=== PATIENT | female | born 1960 | race Caucasian/White ===

== ENCOUNTER 2019-03-11 22:05 | Observation (INO) ==
[2019-03-11] MEDS ORDERED: Ketorolac 30 MG/ML VIAL IVP ONE (22:50)
[2019-03-11] MEDS ORDERED: Prochlorperazine 10 MG/2 ML VIAL IVP STA (22:50)
[2019-03-11] MEDS ORDERED: Isovue-370 500 ML BOTTLE IVP ONE (22:54)
[2019-03-11] MEDS ORDERED: methylPREDNISolone 125 MG/2 ML VIAL IVP ONE (22:55)
[2019-03-11 23:07] LABS: Basophils # 0.1 K/mcL (0.0-0.2); Basophils % 0.5 %; Eosinophils # 0.2 K/mcL (0.0-0.6); Eosinophils % 1.8 %; Hemoglobin 14.2 g/dL (11.5-15.4); Immature Granulocytes % 0.6 % (0-4); Lymphocytes # 2.9 K/mcL (0.6-4.6); Lymphocytes % 30.9 %; Mean Corpuscular Hemoglobin 29.6 pg (28.0-33.3); Mean Corpuscular Volume 89.8 fL (83.0-100.0); Mean Platelet Volume 9.5 fL (9.4-12.4); Monocytes # 0.8 K/mcL (0.0-1.3); Neutrophils # 5.4 K/mcL (1.6-8.9); Platelet Count 333 K/mcL (140-400); Red Blood Count 4.79 M/mcL (3.82-4.97); Red Cell Distribution Width 12.7 % (11.5-14.5); Segmented Neutrophils % 58.2 %; White Blood Count 9.3 K/mcL (4.3-11.1)
[2019-03-11 23:28] LABS: BUN/Creatinine Ratio 26 (6-26); Blood Urea Nitrogen 18 mg/dL (6-20); C-Reactive Protein < 5 mg/L (Less than 10); Calcium 9.3 mg/dL (8.6-10.3); Carbon Dioxide 25 mEq/L (23-29); Chloride 102 mEq/L (98-107); Glucose 110 mg/dL (70-105); Osmolality,Calculated 285 (280-300); Sodium 136 mEq/L (136-145); eGFR For African Americans > 60 (> 60); eGFR For Non-African Americans > 60 (> 60)
--- NOTE | 2019-03-11 23:38 | Emergency Department Note ---
Disposition Clinical Impression: Photophobia Cephalgia Qualifiers: Headache type: unspecified Headache chronicity pattern: acute headache Intractability: not intractable Qualified Code(s): R51 - Headache Disposition: Admitted As Inpatient Condition: Fair Referrals: Lloyd Sheffield DO [Primary Care Provider] - Forms: ED Satisfaction Letter Time of Disposition: 01:06 Headache HPI - General Chief Complaint: ED Headache Stated Complaint: Migraine x5hrs, Dizzy, Nausea, Blurry Vision Time Seen by Provider: 03/11/19 22:24 Source: patient, family Mode of arrival: private vehicle Limitations: no limitations Nursing Notes Reviewed: Yes Vital Signs Reviewed: Yes - History of Present Illness HPI Narrative: 58-year-old female with a past medical history of hypertension for which she takes lisinopril that reports a sudden onset headache over her left holiness approximately 5 hours prior to arrival. Patient describes her pain as throbbing, 10 out of 10 in severity, associated with blurry vision, lighthead edness, nausea. Patient also describes some dry heaves but no actual vomiting. Patient states she has had this approximate 5 years ago but cannot remember what they did at the time or if there is any cause. Patient is in a darkened room, with a wash cloth over her face, and states that light and sound make the pain worse. Patient is also describing some numbness on the left side of her face. She cannot tell me if tapping on her left holiness makes her pain worse. Pain Scale: 8 - Related Data Home Medications Medication Instructions Recorded Confirmed Fluoxetine 11/24/17 Lisinopril 11/24/17 Tylenol 11/24/17 Previous Rx's Medication Instructions Recorded methylPREDNISolone [Medrol] 4 mg PO TAPER #21 tablet 11/24/17 Allergies Allergy/AdvReac Type Severity Reaction Status Date / Time No Known Allergies Allergy Verified 11/24/17 14:11 Review of Systems: In addition to that documented in the HPI above, the additional ROS was obtained: Constitutional: Denies fevers or chills Eyes: Reports blurry vision starting with headache ENMT: Denies sore throat CV: Denies chest pain Resp: Denies SOB GI: Denies vomiting or diarrhea Reports nausea and dry heaves : Denies painful urination MSK: Denies recent trauma Skin: Denies new rashes Neuro: Denies new numbness or tingling or weakness Reports sudden onset headache and lightheadedness Endocrine: Denies unexpected weight loss Heme: Denies bleeding disorders Headache PMH - Past Medical History Medical history: Reports: hypertension, migraine Psychiatric history: Reports: no psych history - Social History Smoking Status: Never smoker Alcohol use: Reports: none Drug use: Reports: none Physical Exam Pt could not participate in neurologic examination in the beginning due to pain, but CN II-XII grossly intact with the exception of CNV, V1-V2 on left pt states she cannot feel me touching her face in these distributions. No facial droop. Mentating well. Speech not slurred. - General Limitations: no limitations General appearance: alert - Head Head exam: atraumatic, normocephalic - Neck Neck exam: Present: normal inspection, full ROM, trachea midline - Chest Chest inspection: Present: normal inspection, symmetric chest wall rise - Abdominal Exam Abdominal exam: Present: soft, Non-Tender - Extremities Exam Extremities exam: Present: normal inspection, full ROM - Back Exam Back exam: Present: normal inspection, full ROM - Neurological Exam Neurological exam: Present: alert, oriented X3 - Psychiatric Psychiatric exam: Present: normal affect, normal mood - Skin Skin exam: Present: warm, dry, intact Course - Consultations Consultation #1: Spoke with Dr. Hill, neurology, who states that if the patient was not feeling better, to get an MRI. 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 Concern for SAH, giant cell arteritis. Will obtain Head CT, Head CTA . Will admin migraine cocktail, will give IV steroids, and will obtain CBC, BMP, ESR, CRP. Disposition pending. 2419: Pt reports her headache improved to 6/10 in severity and no longer had a wash cloth on her face. Will order morphine and apply NC O2. 2446: Spoke with Dr. Menjivar from neurology who states that if there is continued concern, he would order an MRI. Will admit pt to hospitalist for imaging in the AM. - Medical Records Medical records reviewed: Yes I reviewed the patient's medical records. - Lab Data Lab results reviewed: Yes I reviewed the patient's lab results. Result diagrams: 03/11/19 22:57 03/11/19 22:57 Lab Results 03/11/19 03/11/19 03/11/19 Range/Units 22:57 22:57 22:57 WBC 9.3 (4.3-11.1) K/mcL RBC 4.79 (3.82-4.97) M/mcL Hgb 14.2 (11.5-15.4) g/dL Hct 43.0 (35.3-44.9) % MCV 89.8 (83.0-100.0) fL MCH 29.6 (28.0-33.3) pg MCHC 33.0 (31.6-35.5) g/dL RDW 12.7 (11.5-14.5) % Plt Count 333 (140-400) K/mcL MPV 9.5 (9.4-12.4) fL Immature Gran % 0.6 (0-4) % Seg Neutrophils % 58.2 % Lymphocytes % 30.9 % Monocytes % 8.0 % Eosinophils % 1.8 % Basophils % 0.5 % Neutrophils # 5.4 (1.6-8.9) K/mcL Lymphocytes # 2.9 (0.6-4.6) K/mcL Monocytes # 0.8 (0.0-1.3) K/mcL Eosinophils # 0.2 (0.0-0.6) K/mcL Basophils # 0.1 (0.0-0.2) K/mcL ESR 16 H (0-15) mm/hr Sodium 136 (136-145) mEq/L Potassium 4.0 (3.5-5.1) mEq/L Chloride 102 (98-107) mEq/L Carbon Dioxide 25 (23-29) mEq/L BUN 18 (6-20) mg/dL Creatinine 0.68 (0.60-1.20) mg/dL Est GFR ( Amer) > 60 (> 60) Est GFR (Non-Af Amer) > 60 (> 60) BUN/Creatinine Ratio 26 (6-26) Glucose 110 H (70-105) mg/dL Calculated Osmolality 285 (280-300) Calcium 9.3 (8.6-10.3) mg/dL Total Bilirubin 0.6 (0.3-1.0) mg/dL Direct Bilirubin 0.1 (0.0-0.2) mg/dL Indirect Bilirubin 0.5 (0.0-1.2) mg/dL AST 17 (13-39) Units/L ALT 27 (7-52) Units/L Alkaline Phosphatase 82 (34-104) Units/L C-Reactive Protein < 5 (Less than 10) mg/L Serum Total Protein 7.2 (6.4-8.9) g/dL Albumin 4.4 (3.5-5.7) g/dL Globulin 2.8 (2.4-3.5) g/dL Albumin/Globulin Ratio 1.6 (1.1-2.2) Salicylates < 2.5 L (15.0-30.0) mg/dL Acetaminophen < 10 L (10-20) mcg/mL - Radiology Data Radiology results reviewed: Yes I reviewed the patient's radiology results. Head CT 03/11/19 22:48 IMPRESSION: Negative CT brain with no acute intracranial abnormality. D/ / Lorna Reyes MD / Lorna Reyes MD Interpreting Provider: Lorna Reyes MD Head CTA 03/11/19 22:54 IMPRESSION: Unremarkable CTA of the head. D/ / Joaquim Roman MD / Joaquim Roman MD Interpreting Provider: Joaquim Roman MD
[2019-03-11 23:39] LABS: Acetaminophen < 10 mcg/mL (10-20); Alanine Aminotransferase 27 Units/L (7-52); Albumin 4.4 g/dL (3.5-5.7); Albumin/Globulin Ratio 1.6 (1.1-2.2); Alkaline Phosphatase 82 Units/L (34-104); Aspartate Amino Transferase 17 Units/L (13-39); Bilirubin,Direct 0.1 mg/dL (0.0-0.2); Bilirubin,Indirect 0.5 mg/dL (0.0-1.2); Bilirubin,Total 0.6 mg/dL (0.3-1.0); Globulin 2.8 g/dL (2.4-3.5); Salicylate < 2.5 mg/dL (15.0-30.0); Total Protein 7.2 g/dL (6.4-8.9)
[2019-03-12] MEDS ORDERED: Morphine Sulfate 2 MG/ML SYRINGE IVP ONE (00:17)
--- NOTE | 2019-03-12 00:34 | Emergency Department Note ---
Disposition Clinical Impression: Cephalgia, Photophobia Disposition: Admitted As Inpatient Condition: Good Referrals: Lloyd Sheffield DO [Primary Care Provider] - Forms: ED Satisfaction Letter Time of Disposition: 00:41 General Adult HPI - General Chief complaint: ED Headache Stated complaint: Migraine x5hrs, Dizzy, Nausea, Blurry Vision Time Seen by Provider: 03/11/19 22:24 Source: patient, family Mode of arrival: private vehicle Limitations: no limitations - History of Present Illness Pain Scale: 8 - Related Data Home Medications Medication Instructions Recorded Confirmed Fluoxetine 11/24/17 Lisinopril 11/24/17 Tylenol 11/24/17 Previous Rx's Medication Instructions Recorded methylPREDNISolone [Medrol] 4 mg PO TAPER #21 tablet 11/24/17 Allergies Allergy/AdvReac Type Severity Reaction Status Date / Time No Known Allergies Allergy Verified 11/24/17 14:11 Past Medical History - Past Medical History Medical history: Reports: hypertension, migraine Psychiatric history: Reports: no psych history - Social History Smoking Status: Never smoker Smokeless Tobacco Status: No Alcohol use: Reports: none Drug use: Reports: none Physical Exam - General Limitations: no limitations General appearance: alert Course Vital Signs Temperature 97.5 F L 03/11/19 22:22 Pulse Rate 77 03/11/19 22:22 Respiratory Rate 20 03/11/19 22:22 Blood Pressure 152/95 03/11/19 22:22 O2 Sat by Pulse Oximetry 100 03/11/19 22:22 Temperature 97.5 F L 03/11/19 22:22 Pulse Rate 77 03/11/19 22:22 Respiratory Rate 20 03/11/19 22:22 Blood Pressure 152/95 03/11/19 22:22 O2 Sat by Pulse Oximetry 100 03/11/19 22:22 Oxygen Delivery Oxygen Delivery Room Air Medical Decision Making - MDM Narrative Medical decision making narrative: 58-year-old female presents emergency room for left-sided headache. Started around 4:30 today. Said no onset. Pain involving the left temporal region and left forehead region. Associated with blurry vision and photophobia. She denies double vision but describes it more of a blurry vision. She denies blindness in her left eye. She also describes some slight numbness in the left forehead region and in the left cheek. She denies any circumoral numbness. No speech rounds. No tongue problems. She denied any numbness or weakness in her arms or legs. No history of CVA. She denies trauma. No neck pain or neck stiffness. On exam, patient sitting in a dark room with a towel over her head. She is complaining of some tingling numbness sensation in the V1 and V2 distribution of the trigeminal nerve. She does have pain in the left temporal region on but she has no on the temporal artery itself, however we elected to give her some solumedrol to start. CT and CTA negative. I don't feel she has an acute SAH. will consult with neurology now. c - Medical Records Medical records reviewed: Yes I reviewed the patient's medical records. - Lab Data Lab results reviewed: Yes I reviewed the patient's lab results. Result diagrams: 03/11/19 22:57 03/11/19 22:57 Lab Results 03/11/19 03/11/19 03/11/19 Range/Units 22:57 22:57 22:57 WBC 9.3 (4.3-11.1) K/mcL RBC 4.79 (3.82-4.97) M/mcL Hgb 14.2 (11.5-15.4) g/dL Hct 43.0 (35.3-44.9) % MCV 89.8 (83.0-100.0) fL MCH 29.6 (28.0-33.3) pg MCHC 33.0 (31.6-35.5) g/dL RDW 12.7 (11.5-14.5) % Plt Count 333 (140-400) K/mcL MPV 9.5 (9.4-12.4) fL Immature Gran % 0.6 (0-4) % Seg Neutrophils % 58.2 % Lymphocytes % 30.9 % Monocytes % 8.0 % Eosinophils % 1.8 % Basophils % 0.5 % Neutrophils # 5.4 (1.6-8.9) K/mcL Lymphocytes # 2.9 (0.6-4.6) K/mcL Monocytes # 0.8 (0.0-1.3) K/mcL Eosinophils # 0.2 (0.0-0.6) K/mcL Basophils # 0.1 (0.0-0.2) K/mcL ESR 16 H (0-15) mm/hr Sodium 136 (136-145) mEq/L Potassium 4.0 (3.5-5.1) mEq/L Chloride 102 (98-107) mEq/L Carbon Dioxide 25 (23-29) mEq/L BUN 18 (6-20) mg/dL Creatinine 0.68 (0.60-1.20) mg/dL Est GFR ( Amer) > 60 (> 60) Est GFR (Non-Af Amer) > 60 (> 60) BUN/Creatinine Ratio 26 (6-26) Glucose 110 H (70-105) mg/dL Calculated Osmolality 285 (280-300) Calcium 9.3 (8.6-10.3) mg/dL Total Bilirubin 0.6 (0.3-1.0) mg/dL Direct Bilirubin 0.1 (0.0-0.2) mg/dL Indirect Bilirubin 0.5 (0.0-1.2) mg/dL AST 17 (13-39) Units/L ALT 27 (7-52) Units/L Alkaline Phosphatase 82 (34-104) Units/L C-Reactive Protein < 5 (Less than 10) mg/L Serum Total Protein 7.2 (6.4-8.9) g/dL Albumin 4.4 (3.5-5.7) g/dL Globulin 2.8 (2.4-3.5) g/dL Albumin/Globulin Ratio 1.6 (1.1-2.2) Salicylates < 2.5 L (15.0-30.0) mg/dL Acetaminophen < 10 L (10-20) mcg/mL - Radiology Data Radiology results reviewed: Yes I reviewed the patient's radiology results.
[2019-03-12] MEDS ORDERED: 0.9 % Sodium Chloride 1,000 ML ONE (00:53)
[2019-03-12] MEDS ORDERED: 0.9 % Sodium Chloride 1,000 ML IVC SCH (01:00)
[2019-03-12] MEDS ORDERED: Ondansetron 4 MG/2 ML VIAL IVP PRN (04:49)
[2019-03-12] MEDS ORDERED: Naloxone 0.4 MG/ML INJ IVP PRN (04:49)
[2019-03-12] MEDS ORDERED: Ketorolac 15 MG/ML VIAL IVP PRN (04:53)
[2019-03-12] MEDS ORDERED: traMADol 50 MG TABLET PO PRN (04:53)
--- NOTE | 2019-03-12 04:59 | Internal Med History&Physical ---
Date of Encounter: 03/12/19 Time of Encounter: 04:53 Internal Medicine - H&P: HPI Chief complaint: Headache History of present illness: Ms. Bowling is a 58 year old female with a past medical history of hypertension who presented to the ED due to acute onset headache. Patient states that she was in her usual state of health. Around 4:30 yesterday afternoon she began n oting blurry vision a slight blurriness in her vision which was shortly followed by a headache. Headache was described as left sided predominantly, nonradiating and throbbing in quality. Patient went home and attempted to sleep it off, however, headache persisted and became progressively worse into the evening. She began having associated nausea and dry heaves. She took Tylenol which did not help. Symptoms appear to be aggravated by bright lights. Patient denies any migraine history but states she has had similar headaches in the remote past approximately 5 years ago with similar presentation. Patient did endorse some soreness along the left jainism and tingling along the left side of the face. No reported weakness or focal deficits. No reports of jaw pain with chewing. Denies any stiffness in the shoulders or hips. Patient denies any recent changes in sleep or diet. She does report some stress at work. Patient is a nonsmoker. Does not drink. Family history of brain aneurysm and patient's mother. Patient currently feeling better. She still has some slight photophobia. On initial arrival patient was afebrile and hemodynamically stable. Laboratory workup was relatively unremarkable with a slightly elevated ESR 16. Past Med Surg Social Fam HX - Past Medical History Medical history: hypertension, migraine Psychiatric history: no psych history - Social History Smoking Status: Never smoker Smokeless Tobacco Status: No Alcohol use: none Drug use: none Internal Medicine - H&P: Meds Fluoxetine 20 mg PO DAILY 11/24/17 [History] Lisinopril 20 mg PO DAILY 11/24/17 [History] Tramadol HCl [Ultram] 50 mg PO BID PRN 03/12/19 [History] Allergy/AdvReac Type Severity Reaction Status Date / Time No Known Allergies Allergy Verified 11/24/17 14:11 All Systems PM: A 10-system review of systems was performed and is negative for pertinent findings except as documented above in the HPI. - Constitutional Constitutional: no chills, no fever(s), no night sweats - EENT Eyes: no change in vision, no discharge, no pain, no photophobia Ears: no ear discharge, no ear pain, no tinnitus Nose, mouth and throat: no dysphagia, no nasal discharge, no neck pain, no sore throat - Cardiovascular Cardiovascular ROS IM: no chest pain, no diaphoresis, no dyspnea, no lightheadedness, no palpitations, no syncope - Respiratory Respiratory: no cough, no dyspnea, no wheezing, no excessive phlegm production - Gastrointestinal Gastrointestinal: no abdominal pain, no diarrhea, no hematemesis, no hematochezia, no melena, no nausea, no vomiting - Genitourinary Genitourinary: no change in urinary stream, no dysuria, no flank pain, no hematuria - Musculoskeletal Musculoskeletal ROS IM: no numbness, no tingling - Integumentary Integumentary IM: no rash, no unusual bruising - Neurological Neurological ROS: no confusion, no convulsions, no focal weakness, no numbness, no tingling, no tremor(s) - Hematologic/Lymphatic Hematologic/Lymphatic: no easy bruising - Constitutional Vitals: Temp Pulse Resp BP Pulse Ox 98.1 F 71 15 125/78 98 03/12/19 03:05 03/12/19 03:05 03/12/19 03:05 03/12/19 03:05 03/12/19 03:05 Exam: General: Alert and oriented 3 lying in bed in no acute distress Skin:Normal color, no rash, no lesions. HEENT:EOM, pupils equal, round and reactive. Cardiovascular:Normal S1 & S2, no rubs, murmurs or gallops. No JVD. Pulse regula r. Lungs:Normal breath sounds, no wheezes or crackles. Abdomen:Soft, non-tender, no rigidity. Extremities:No deformity, no edema or tenderness, no joint swelling or clubbing. Neurological:Normal cognition and motor skills. cranial nerves II through XII intact. Sensation intact. Muscle strength 5 out of 5 in the upper lower extremities. Pulses:Carotid and radial pulses normal +2. Rest of the physical exam is non contributory Internal Med - H&P Results - Labs CBC & Chem 7: 03/11/19 22:57 03/11/19 22:57 Labs: Short CBC 03/11/19 Range/Units 22:57 WBC 9.3 (4.3-11.1) K/mcL Hgb 14.2 (11.5-15.4) g/dL Hct 43.0 (35.3-44.9) % Plt Count 333 (140-400) K/mcL Neutrophils # 5.4 (1.6-8.9) K/mcL BMP 03/11/19 22:57 Sodium 136 Potassium 4.0 Chloride 102 Carbon Dioxide 25 BUN 18 Creatinine 0.68 Glucose 110 H Calcium 9.3 Liver Function 03/11/19 Range/Units 22:57 Total Bilirubin 0.6 (0.3-1.0) mg/dL Direct Bilirubin 0.1 (0.0-0.2) mg/dL AST 17 (13-39) Units/L ALT 27 (7-52) Units/L Alkaline Phosphatase 82 (34-104) Units/L Albumin 4.4 (3.5-5.7) g/dL - Impressions ITS Impressions Head CT 03/11/19 22:48 IMPRESSION: Negative CT brain with no acute intracranial abnormality. D/ / Lorna Reyes MD / Lorna Reyes MD Interpreting Provider: Lorna Reyes MD Head CTA 03/11/19 22:54 IMPRESSION: Unremarkable CTA of the head. D/ / Joaquim Roman MD / Joaquim Roman MD Interpreting Provider: Joaquim Roman MD - Assessment and Plan (1) Headache Current Visit: Yes Status: Acute Assessment and plan: Patient presenting with acute onset left-sided severe throbbing headache associated with nausea, photophobia and proceed by changes in vision consistent with migraine with aura. Patient reports previous history of migraines was similar presentation approximately 5 years ago. Patient reporting left jainism soreness to palpation but no reports of jaw claudication or arthritic symptoms suggestive of polymyalgia rheumatica to support giant cell arteritis. Furthermore ESR near normal. Low suspicion for CVA/TIA, aneurysm or intracranial lesion given absence of focal findings and normal CTA. Headache since has much improved. Case was discussed with neurology who felt -Continue to monitor for now with neuro checks every 4 hours -Pain control as needed -At this time, do not feel MRI is needed, however Dr. Menjivar from neurology suggested that if there is continued concern, he would order an MRI. Qualifiers: Headache chronicity pattern: acute headache Intractability: not intractable Qualified Code(s): R51 - Headache (2) Hypertension Current Visit: Yes Status: Acute Assessment and plan: Blood pressure stable. -Resume home antihypertensives Qualifiers: Hypertension type: essential hypertension Qualified Code(s): I10 - Essential (primary) hypertension (3) Depression Current Visit: Yes Status: Acute Assessment and plan: Resume fluoxetine Qualifiers: Depression Type: unspecified Qualified Code(s): F32.9 - Major depressive disorder, single episode, unspecified - Time Spent With Patient Total time spent is greater than 50% in coordination of care (as documented) at patient's floor/unit and/or counseling patient:
[2019-03-12] MEDS ORDERED: Lisinopril 20 MG TABLET PO SCH (09:00)
[2019-03-12] MEDS ORDERED: FLUoxetine 20 MG CAPSULE PO SCH (09:00)
--- NOTE | 2019-03-12 10:01 | Neurology - Consult Note ---
Date of Encounter: 03/12/19 Time of Encounter: 09:53 Assessment and Plan (1) Migraine with aura Current Visit: Yes Status: Acute Qualifiers: Status migrainosus presence: without status migrainosus Intractability: not intractable Qualified Code(s): G43.109 - Migraine with aura, not intractable, without status migrainosus History of Present Illness Chief complaint: Headache, vision loss HPI: Ms. Bowling is a 58 year old female with past medical history of hypertension and migraines who presents to emergency department with complaint of left temporal headache. Patient states that she was at work and at approximately 1600 began to experience sudden onset left-sided headache. Patient states that she does have a remote history of migraines in the past which this was similar, however she has not had one in many years. She states that she went home and tried to lay down and take Tylenol however this did not relieve her pain. She also noticed that she has had some intermittent blurred vision in her left eye during this time. Additionally, she states that she had some numbness to the left side of her face in the V1 and V2 distributions. She states that with her previous migraines, she has had neurologic symptoms in the past as well as nausea without vomiting. She did have dry heaves on this admission. She denies any recent travel, insect or arthropod bites, sick contacts. She is having no symptoms of chest pains, difficulty breathing, vomiting, changes in bowel movements or urina ry symptoms. She denies any focal weakness or numbness other than her face as mentioned above. She states her symptoms lasted until approximately 0200 this morning after admission. Upon presentation to the emergency room, vital signs were significant for a respiratory rate of 20 and a blood pressure 152/95. Laboratory results were grossly unremarkable except for a very mildly elevated ESR of 16. CT as well as CT of the head were both performed and showed no evidence of acute process. She was given Benadryl, Toradol, Solu-Medrol, morphine, Compazine in the emergency department. At time of my interview, patient states her symptoms have essentially resolved and she has "aching" in her left temporal region but is much improved from previous. She states her vision changes have now resolved and she is no longer feeling nauseous. Past medical history: As above Past surgical history: Remote history of meniscus repair Social history: Denies tobacco, alcohol, illicit drug use Family history: Alcoholism in father Past Med Surg Social Fam HX - Past Medical History Medical history: hypertension, migraine Psychiatric history: no psych history - Social History Smoking Status: Never smoker Smokeless Tobacco Status: No Alcohol use: none Drug use: none Medications and Allergies Fluoxetine 20 mg PO DAILY 11/24/17 [History] Lisinopril 20 mg PO DAILY 11/24/17 [History] Tramadol HCl [Ultram] 50 mg PO BID PRN 03/12/19 [History] Allergy/AdvReac Type Severity Reaction Status Date / Time No Known Allergies Allergy Verified 11/24/17 14:11 All Systems: The remainder of the systems were reviewed and are negative Review of Systems: - Constitutional: Denies fevers, chills, weight loss, generalized fatigue - Head/Neck: Denies CHRISTOPHER, neck stiffness - EENT: Admits to vision changes. Denies tinnitus, auditory changes, rhinorrhea, congestion, sore throat, odynaphagia - CVS: Denies chest pain, palpitations, PIKE, orthopnea, edema, - Pulm: Denies SOB, cough, sputum, wheezing - GI: Admits to nausea Denies abdominal pain, anorexia, vomiting, diarrhea, constipation, melena - : Denies dysuria, increased frequency, urgency, hematuria, - MSK: Denies joint pain, limited ROM, focal weakness - Skin: Denies rashes, ulcers, color changes, - Neuro: Admits to headache, numbness of the face, Denies paresthesias, focal deficits, ataxia, Physical Examination - Vital Signs Vital Signs: Initial Vital Signs Temp Pulse Resp BP Pulse Ox 97.5 F L 77 20 152/95 100 03/11/19 22:22 03/11/19 22:22 03/11/19 22:22 03/11/19 22:22 03/11/19 22:22 - Constitutional General appearance: comfortable, younger than stated age - Neurologic Detailed motor examination: grossly full strength in all extremities, full strength in all major muscle groups Motor examination - right side: 5/5: deltoids, biceps, triceps, credentialing manager, hip flexors, tibialis Anterior, quadriceps Motor examination - left side: 5/5: deltoids, biceps, triceps, hip flexors, credentialing manager, quadriceps, tibialis Anterior Detailed sensory examination: intact (Reports decreased sensation on V1 distribution of left side of face. Otherwise intact) Reflexes: Biceps: 2+, Patella: 2+ Mental Status Examination: awake, alert, oriented to person, oriented to place, oriented to time, follows commands appropriately, answers questions appropriately, no agnosia, no aphasia, no aproxia Cranial nerve examination: PERRL, EOMI, visual broderick intact, mastication intact, no facial asymmetry is present, no dysarthria, hearing is intact symmetrically, tongue protrudes midline, no atrophy or facial fasiculations present Cerebellar examination: performs finger to nose and heel to lee symmetrically without ataxia Results - Laboratory Findings CBC and BMP: 03/11/19 22:57 03/11/19 22:57 Abnormal lab findings: Abnormal lab results ESR 16 mm/hr (0-15) H 03/11/19 22:57 Glucose 110 mg/dL (70-105) H 03/11/19 22:57 Salicylates < 2.5 mg/dL (15.0-30.0) L 03/11/19 22:57 Acetaminophen < 10 mcg/mL (10-20) L 03/11/19 22:57 Consult Discharge Plan - Plan Referrals: Lloyd Sheffield DO [Primary Care Provider] -
--- NOTE | 2019-03-12 11:45 | Discharge Summary ---
Date of Encounter: 03/12/19 Time of Encounter: 09:00 - Discharge Diagnosis (1) Headache Priority: Primary Status: Acute Assessment and Plan: 58 year old female with a past medical history of hypertension who presented to the ED due to acute onset headache. Patient states that she was in her usual state of health. Around 4:30 yesterday afternoon she began noting blurry vision a slight blurriness in her vision which was shortly followed by a headache. Headache was described as left sided predominantly, nonradiating and throbbing in quality. Patient went home and attempted to sleep it off, however, headache persisted and became progressively worse into the evening. She began having associated nausea and dry heaves. She took Tylenol which did not help. Symptoms appear to be aggravated by bright lights. Patient denies any migraine history but states she has had similar headaches in the remote past approximately 5 years ago with similar presentation Patient presenting with acute onset left-sided severe throbbing headache associated with nausea, photophobia and proceed by changes in vision consistent with migraine with aura. Patient reports previous history of migraines was similar presentation approximately 5 years ago. CTA head negative for any acute findings. She improved on migraine cocktail that was given in ER. She was discharged on prn analgesics and counseled to f/u with her PCP Qualifiers: Headache chronicity pattern: acute headache Intractability: not intractable Qualified Code(s): R51 - Headache (2) Hypertension Priority: Primary Status: Acute Qualifiers: Hypertension type: essential hypertension Qualified Code(s): I10 - Essential (primary) hypertension (3) Depression Priority: Primary Status: Acute Qualifiers: Depression Type: unspecified Qualified Code(s): F32.9 - Major depressive disorder, single episode, unspecified Hospital course: Ms. Bowling is a 58 year old female - Time Spent with Patient Total time spent providing and/or coordinating discharge services: - Discharge Medications Prescriptions: New Acetaminophen [Tylenol] 650 mg PO Q6HR #30 tablet Continued Lisinopril 20 mg PO DAILY Fluoxetine 20 mg PO DAILY Tramadol HCl [Ultram] 50 mg PO BID PRN PRN Reason: Pain Home Medications: Fluoxetine 20 mg PO DAILY 11/24/17 [History] Lisinopril 20 mg PO DAILY 11/24/17 [History] Acetaminophen [Tylenol] 650 mg PO Q6HR #30 tablet 03/12/19 [Rx] Tramadol HCl [Ultram] 50 mg PO BID PRN 03/12/19 [History] Allergies/Adverse Reactions: Allergy/AdvReac Type Severity Reaction Status Date / Time No Known Allergies Allergy Verified 11/24/17 14:11 Date of admission: 03/12/19 01:37 Primary care physician: Lloyd Sheffield Consults: 03/12/19 00:42 Consult to Neurology [CONS] Stat Consulting Provider: [facility] Reason for Consult: Sudden onset headache with numbness to V1-V2 of CNV Time Notified: 00:43 Call Completed: Yes - Constitutional Vitals: Temp Pulse Resp BP Pulse Ox 97.9 F 70 18 125/74 96 03/12/19 07:33 03/12/19 07:33 03/12/19 07:33 03/12/19 07:33 03/12/19 07:33 Exam: General: Alert and oriented 3 lying in bed in no acute distress Skin:Normal color, no rash, no lesions. HEENT:EOM, pupils equal, round and reactive. Cardiovascular:Normal S1 & S2, no rubs, murmurs or gallops. No JVD. Pulse regular. Lungs:Normal breath sounds, no wheezes or crackles. Abdomen:Soft, non-tender, no rigidity. Extremities:No deformity, no edema or tenderness, no joint swelling or clubbing. Neurological:Normal cognition and motor skills. cranial nerves II through XII intact. Sensation intact. Muscle strength 5 out of 5 in the upper lower extremities. Pulses:Carotid and radial pulses normal +2. Rest of the physical exam is non contributory - Patient Status Disposition: Home, Self-Care Condition: Fair - Discharge Instructions Follow Up With: Lloyd Sheffield DO [Primary Care Provider] - 03/18/19 2:30 pm Additional Instructions: Follow-up appointments: If there is not an appointment listed below, please call your physician and schedule a follow-up appointment. If you have congestive heart failure and your symptoms return, make an appointment with your physician. Medication List: Carry an up to date list of medications you are taking at all time. We have given you an updated medication list including any new medications that you have been prescribed. Please provide that list to your primary provider Symptoms: If your condition changes or you experience any of the following symptoms, notify your physician immediately: Unusual or worsening pain, fever, persistent nausea and vomiting, bleeding, increase in swelling (especially in your legs), sudden weight gain, extreme dizziness, chest pain, increased drainage or redness from a wound or incision. Go to the emergency department if you experience a problem with breathing. Weights: If you have a history of swelling or shortness of breath, weigh yourself daily and notify your physician if you have a weight gain of two or more pounds in one day or 5 or more pounds in a week. If you experience any of the warning signs for stroke: Sudden numbness or weakness of the face, arm or leg; especially on one side of the body, sudden confusion, trouble speaking or understanding, sudden trouble seeing in one or both eyes, sudden trouble walking, dizziness, loss of balance or coordination, sudden sever headache with no cause; Call 911 or go to the emergency room. Stroke is a medical emergency. Some risk factors for stroke: Age, cigarette smoking, diabetes, excessive alcohol consumption, family history, high blood pressure, overweight, physical inactivity, prior stroke, heart attac k, diagnosis of carotid artery stenosis or other artery disease. If you smoke, STOP: Smoking or tobacco use significantly increases your risk of heart and lung disease. Your chance of disease greatly increases if you continue to smoke. For more information, call the [place] tobacco quit line for smoking cessation 7-831-SKUG-NOW ( )
[2019-03-12 11:54] VITALS: BP 127/84
== END 2019-03-12 12:55 | disposition home or self-care (01) ==
LOC: 3NENU 22:05 → EMEROOARM 22:05 → 3NENU 03-12 02:36
PROVIDERS: ADMIT Internal Medicine; ATTEND Internal Medicine